=== PATIENT | male | born 1955 | race African-American/Black ===

== ENCOUNTER 2021-12-14 07:11 | Emergency (ER) | payer MEDICAID ==
[~2021-12-14] VITALS: Ht 175.3 cm; Wt 82.0 kg
[2021-12-14 08:30] LABS: BASOPHILS % 0.6 % (0.0-2.0); HEMATOCRIT. 44.5 % (42.0-52.0); HEMOGLOBIN. 15.3 g/dL (14.0-18.0); LYMPHOCYTES % 22.6 % (20.0-50.0); MEAN CORPUSCULAR HEMOGLOBIN 34.2 pg (28.0-32.0); MEAN CORPUSCULAR VOLUME 99.6 fL (80.0-94.0); NEUTROPHILS % 50.8 % (40.0-76.0); PLATELET 300 x1000/uL (130-400); RED BLOOD CELL COUNT 4.47 mill/uL (4.7-6.1); RED CELL DISTRIBUTION WIDTH 13.1 % (11.6-14.6)
[2021-12-14 08:36] LABS: CHLORIDE 105 mEq/L (98-107)
[2021-12-14] MEDS ORDERED: METHYLPREDNISOLONE SOD SUCC 125 MG/2 ML VIAL IV STA (09:20)
[2021-12-14] MEDS ORDERED: IPRATROPIUM BROMIDE (0.02%) 0.5MG/2.5ML NEB HHN STA (09:20)
[2021-12-14] MEDS ORDERED: ALBUTEROL (0.083%) 2.5MG/3ML NEB HHN STA (09:20)
[2021-12-14] MEDS ORDERED: ALBU6.7H9 INH (09:29)
[2021-12-14] MEDS ORDERED: P50 MT (09:29)
[2021-12-14 09:50] VITALS: BP 147/75
== END 2021-12-14 11:05 | disposition home or self-care (01) ==
LOC: ER 07:11
DX: J44.1 Chronic obstructive pulmonary disease with (acute) exacerbation (principal); I10 Essential (primary) hypertension
CPT/HCPCS: 36415; 71045; 80053; 83880; 85025; 93005; 94640; 96374; 99285; J2930; Z7610

== ENCOUNTER 2021-12-27 20:28 | Emergency (ER) | payer MEDICAID ==
[~2021-12-27] VITALS: Ht 175.3 cm; Wt 82.0 kg
[~2021-12-27 20:28] MED LIST: ALBU6.7H9 INH; P50 MT
[2021-12-27] MEDS ORDERED: IPRATROPIUM BROMIDE (0.02%) 0.5MG/2.5ML NEB HHN STA (22:46)
[2021-12-27] MEDS ORDERED: METHYLPREDNISOLONE SOD SUCC 125 MG/2 ML VIAL IV STA (22:46)
[2021-12-27] MEDS ORDERED: MAGNESIUM 2 G PREMIX 50 ML IV ONE (23:00)
[2021-12-27] MEDS: ALBUTEROL (0.083%) 2.5MG/3ML NEB HHN SCH (23:18)
[2021-12-28 00:16] LABS: BASOPHILS % 0.7 % (0.0-2.0); EOSINOPHILS % 11.5 % (0.0-5.0); HEMATOCRIT. 42.9 % (42.0-52.0); HEMOGLOBIN. 14.9 g/dL (14.0-18.0); MEAN CORPUSCULAR HEMOGLOBIN 34.5 pg (28.0-32.0); MEAN CORPUSCULAR VOLUME 99.2 fL (80.0-94.0); MEAN PLATELET VOLUME 8.1 fl (7.4-10.4); MONOCYTES % 12.6 % (2.0-8.0); NEUTROPHILS % 52.2 % (40.0-76.0); PLATELET 305 x1000/uL (130-400); RED BLOOD CELL COUNT 4.32 mill/uL (4.7-6.1); RED CELL DISTRIBUTION WIDTH 13.2 % (11.6-14.6)
[2021-12-28 00:20] LABS: CHLORIDE 110 mEq/L (98-107)
[2021-12-28] MEDS ORDERED: BENZONATATE 200MG CAPSULE PO ONE (00:30)
[2021-12-28] MEDS ORDERED: BENZONATATE 100MG CAPSULE PO SCH (01:00)
[2021-12-28] MEDS ORDERED: SODIUM CHLORIDE 0.9% 1,000 ML IV ONE (04:15)
[2021-12-28] MEDS ORDERED: CEFTRIAXONE 1 G PREMIX 50 ML IV SCH (04:15)
[2021-12-28] MEDS ORDERED: AZITHROMYCIN 500MG/250ML 250 ML IV SCH (04:15)
[2021-12-28 06:00] VITALS: BP 171/92
[2021-12-28] MEDS: ALBUTEROL (0.083%) 2.5MG/3ML NEB HHN SCH ×2 (07:58)
== END 2021-12-28 08:20 | disposition left against medical advice (07) ==
LOC: ER 20:28 → ENRESERV 12-28 10:42 → CANRESERV 12-28 10:42 → CANBEDREQ 12-28 11:12
DX: R06.02 Shortness of breath (principal); J44.9 Chronic obstructive pulmonary disease, unspecified; I10 Essential (primary) hypertension; F14.10 Cocaine abuse, uncomplicated; F17.210 Nicotine dependence, cigarettes, uncomplicated; Z20.822 Contact with and (suspected) exposure to COVID-19; Z89.9 Acquired absence of limb, unspecified
CPT/HCPCS: 36415; 71045; 80053; 83605; 83880; 84484; 85025; 87426; 94640; 96365; 96366; 96375; 99291; J2930; J3475; Z7610

== ENCOUNTER 2022-01-28 07:40 | Emergency (ER) | payer MEDICAID ==
[~2022-01-28] VITALS: Ht 175.3 cm; Wt 81.0 kg
[2022-01-28] MEDS ORDERED: IPRATROPIUM BROMIDE (0.02%) 0.5MG/2.5ML NEB HHN STA ×2 (09:04→13:03)
[2022-01-28] MEDS ORDERED: METHYLPREDNISOLONE SOD SUCC 125 MG/2 ML VIAL IV STA (09:04)
[2022-01-28] MEDS ORDERED: ALBUTEROL (0.083%) 2.5MG/3ML NEB HHN STA ×2 (09:04→13:03)
[2022-01-28 09:23] LABS: HEMATOCRIT. 45.1 % (42.0-52.0); HEMOGLOBIN. 15.6 g/dL (14.0-18.0); MEAN CORPUSCULAR HEMOGLOBIN 34.1 pg (28.0-32.0); MEAN CORPUSCULAR VOLUME 98.7 fL (80.0-94.0); MEAN PLATELET VOLUME 8.1 fl (7.4-10.4); PLATELET 304 x1000/uL (130-400); RED BLOOD CELL COUNT 4.56 mill/uL (4.7-6.1); RED CELL DISTRIBUTION WIDTH 12.6 % (11.6-14.6)
[2022-01-28 09:36] LABS: CHLORIDE 108 mEq/L (98-107)
[2022-01-28 10:09] LABS: PLATELET ESTIMATE NORMAL
[2022-01-28 14:15] VITALS: BP 149/80
[2022-01-28] MEDS ORDERED: ALBU6.7H9 INH (15:08)
[2022-01-28] MEDS ORDERED: P50 MT (15:09)
== END 2022-01-28 15:49 | disposition home or self-care (01) ==
LOC: ER 07:40
DX: J44.1 Chronic obstructive pulmonary disease with (acute) exacerbation (principal); F14.10 Cocaine abuse, uncomplicated; I10 Essential (primary) hypertension
CPT/HCPCS: 36415; 71045; 80053; 83880; 84484; 85025; 93005; 94640; 96374; 99285; J2930; Z7610

== ENCOUNTER 2022-06-13 11:06 | Emergency (ER) | payer MEDICARE, MEDICAID ==
[~2022-06-13] VITALS: Ht 175.3 cm; Wt 84.0 kg
[~2022-06-13 11:06] MED LIST changes: +ALBU6.7H3 INH; -ALBU6.7H9 INH; +AMLO10TA4 MT; +AZIT500T8 MT; +LISI10TA26 PO; +P20 PO
[2022-06-13 11:15] VITALS: BP 157/98
== END 2022-06-13 17:57 | disposition left against medical advice (07) ==
LOC: ER 11:06
DX: Z53.21 Procedure and treatment not carried out due to patient leaving prior to being seen by health care provider (principal)
CPT/HCPCS: 93005

== ENCOUNTER 2022-06-15 09:28 | Emergency (ER) | payer MEDICARE, MEDICAID ==
[~2022-06-15] VITALS: Ht 170.2 cm; Wt 79.0 kg
[2022-06-15] MEDS ORDERED: METHYLPREDNISOLONE SOD SUCC 125 MG/2 ML VIAL IV STA (10:55)
[2022-06-15] MEDS ORDERED: IPRATROPIUM BROMIDE (0.02%) 0.5MG/2.5ML NEB HHN STA (10:55)
[2022-06-15] MEDS ORDERED: MAGNESIUM 2 G PREMIX 50 ML IV ONE (11:00)
[2022-06-15] MEDS: ALBUTEROL (0.083%) 2.5MG/3ML NEB HHN SCH ×3 (11:16→12:39)
[2022-06-15 11:55] LABS: BASOPHILS % 0.8 % (0.0-2.0); EOSINOPHILS % 14.4 % (0.0-5.0); HEMOGLOBIN. 15.7 g/dL (14.0-18.0); LYMPHOCYTES % 24.5 % (20.0-50.0); MEAN CORPUSCULAR HEMOGLOBIN 34.9 pg (28.0-32.0); MEAN CORPUSCULAR VOLUME 100.4 fL (80.0-94.0); MEAN PLATELET VOLUME 8.6 fl (7.4-10.4); NEUTROPHILS % 50.3 % (40.0-76.0); PLATELET 332 x1000/uL (130-400); RED BLOOD CELL COUNT 4.49 mill/uL (4.7-6.1); RED CELL DISTRIBUTION WIDTH 13.1 % (11.6-14.6)
[2022-06-15 12:03] LABS: CHLORIDE 106 mEq/L (98-107)
[2022-06-15 12:12] LABS: ETHANOL BLOOD < 10 mg/dL
[2022-06-15 12:19] LABS: *AMPHETAMINES SCREEN URINE NEGATIVE (NEGATIVE); *BARBITURATES SCREEN URINE NEGATIVE (NEGATIVE); *BENZODIAZEPINES SCREEN URINE NEGATIVE (NEGATIVE); *COCAINE SCREEN URINE PRESUMTIVE POSITIVE (NEGATIVE); CANNABINOID URINE SCREEN NEGATIVE (NEGATIVE); METHADONE URINE SCREEN NEGATIVE (NEGATIVE); OPIATES URINE SCREEN PRESUMTIVE POSITIVE (NEGATIVE); PHENCYCLIDINE URINE SCREEN NEGATIVE (NEGATIVE)
[2022-06-15] MEDS ORDERED: ALBUTEROL (0.5%) 2.5MG/0.5ML NEB HHN NR (12:40)
[2022-06-15 13:14] LABS: BG BASE EXCESS 4.2 mmol/L (-2.0-2.0); BG CARBOXYHEMOGLOBIN 1.3 % (0.5-1.5); BG FRACTION INSPIRED OXYGEN 60; BG HCO3 ACT 29.6 mmol/L (22.0-26.0); BG METHEMOGLOBIN 0.3 % (0.0-1.5); BG OXYHEMOGLOBIN 95.4 % (94.0-97.0); BG PCO2 46.9 mmHg (35.0-45.0); BG PH 7.418 (7.350-7.450); BG PO2 90.6 mmHg (75.0-100.0); BG SAMPLE SITE RIGHT RADIAL; BG VENT MODE MASK - HHN
[2022-06-15] MEDS ORDERED: P20 MT (15:10)
[2022-06-15 15:26] VITALS: BP 149/91
== END 2022-06-15 15:30 | disposition home or self-care (01) ==
LOC: ER 09:59
DX: J44.1 Chronic obstructive pulmonary disease with (acute) exacerbation (principal); F14.10 Cocaine abuse, uncomplicated; T40.5X1A Poisoning by cocaine, accidental (unintentional), initial encounter; G89.29 Other chronic pain; I10 Essential (primary) hypertension; Y92.9 Unspecified place or not applicable; Z89.9 Acquired absence of limb, unspecified; Z87.891 Personal history of nicotine dependence; Z20.822 Contact with and (suspected) exposure to COVID-19
CPT/HCPCS: 36415; 36600; 71045; 80053; 80305; 80320; 82375; 82805; 83880; 84484; 85025; 87426; 87804; 93005; 94640; 96365; 96375; 99291; C9803; J2930; J3475; G0480

== ENCOUNTER 2022-07-07 14:39 | Inpatient (IN) | payer MEDICARE, MEDICAID ==
[~2022-07-07] VITALS: Ht 175.3 cm; Wt 85.4 kg
[~2022-07-07 14:39] MED LIST changes: +P20 MT
[2022-07-07] MEDS ORDERED: IPRATROPIUM/ALBUTEROL 0.5-3(2.5)MG/3ML NEB HHN ONE (15:30)
[2022-07-07] MEDS ORDERED: DEXAMETHASONE 4MG TABLET PO ONE (15:30)
[2022-07-07] MEDS ORDERED: ALBUTEROL (0.083%) 2.5MG/3ML NEB HHN ONE ×2 (16:00→17:00)
[2022-07-07 17:32] LABS: HEMATOCRIT. 45.9 % (42.0-52.0); HEMOGLOBIN. 15.9 g/dL (14.0-18.0); MEAN CORPUSCULAR HEMOGLOBIN 34.9 pg (28.0-32.0); MEAN CORPUSCULAR VOLUME 100.6 fL (80.0-94.0); MEAN PLATELET VOLUME 8.2 fl (7.4-10.4); PLATELET 321 x1000/uL (130-400); RED BLOOD CELL COUNT 4.56 mill/uL (4.7-6.1); RED CELL DISTRIBUTION WIDTH 12.8 % (11.6-14.6)
[2022-07-07 17:42] LABS: CHLORIDE 101 mEq/L (98-107)
[2022-07-07 17:58] LABS: PLATELET ESTIMATE NORMAL
[2022-07-08] MEDS ORDERED: ALBUTEROL (0.083%) 2.5MG/3ML NEB HHN PRN ×2 (04:15→09:15)
[2022-07-08] MEDS ORDERED: ONDANSETRON HCL 4MG/2ML INJ IV PRN (08:45)
[2022-07-08] MEDS ORDERED: ACETAMINOPHEN 325MG TABLET PO PRN ×2 (08:45)
[2022-07-08] MEDS ORDERED: CLONIDINE 0.1MG TABLET PO PRN (08:45)
[2022-07-08] MEDS ORDERED: MAGNESIUM/ALUMINUM HYDROXIDE/SIMETHICONE 30ML UDC PO PRN (08:45)
[2022-07-08] MEDS ORDERED: DOCUSATE SODIUM 100MG CAPSULE PO PRN (08:45)
[2022-07-08] MEDS ORDERED: NITROGLYCERIN 0.4MG TABLET SL SL PRN (09:00)
[2022-07-08] MEDS ORDERED: IPRATROPIUM/ALBUTEROL 0.5-3(2.5)MG/3ML NEB HHN PRN (09:00)
[2022-07-08] MEDS ORDERED: KETOROLAC 15MG/ML VIAL IV PRN (09:00)
[2022-07-08] MEDS ORDERED: IPRATROPIUM BROMIDE (0.02%) 0.5MG/2.5ML NEB HHN PRN (09:15)
[2022-07-08] MEDS: LOSARTAN POTASSIUM 100 MG TABLET PO SCH (09:36)
[2022-07-08] MEDS: ASPIRIN 325MG EC TABLET PO SCH (09:36)
[2022-07-08] MEDS: ENOXAPARIN 40MG/0.4ML SYR SUBCUT SCH (09:39)
[2022-07-08] MEDS ORDERED: IPRATROPIUM/ALBUTEROL 0.5-3(2.5)MG/3ML NEB HHN SCH (10:00)
[2022-07-08] MEDS ORDERED: AZITHROMYCIN 500MG/250ML 250 ML IV SCH (10:00)
[2022-07-08 11:03] VITALS: BP 157/88
[2022-07-08 11:13] VITALS: BP 157/88
[2022-07-08] MEDS: ALBUTEROL (0.083%) 2.5MG/3ML NEB HHN SCH ×3 (11:40→21:29)
[2022-07-08] MEDS: IPRATROPIUM BROMIDE (0.02%) 0.5MG/2.5ML NEB HHN SCH ×3 (11:40→21:29)
[2022-07-08 12:00] VITALS: BP 144/78
[2022-07-08] MEDS: AZITHROMYCIN 500MG in DEXTROSE 5% WATER 250ML IV SCH (14:00)
[2022-07-08] MEDS: METHYLPREDNISOLONE SOD SUCC 125 MG/2 ML VIAL IV SCH ×2 (14:00→21:11)
[2022-07-08 16:00] VITALS: BP 141/86
[2022-07-08 16:33] LABS: VITAMIN B12 SERUM 461 pg/mL (211-911)
[2022-07-08 17:45] LABS: MONOTEST NEGATIVE (NEGATIVE)
[2022-07-08] MEDS ORDERED: POTA-202 PO (18:03)
[2022-07-08] MEDS ORDERED: FLOV44 INH (18:03)
[2022-07-08] MEDS ORDERED: IPRA3AMP31 NEB (18:05)
[2022-07-08 20:00] VITALS: BP 152/89
[2022-07-08] MEDS: FAMOTIDINE 20MG TABLET PO SCH (20:30)
[2022-07-08] MEDS ORDERED: ZOLPIDEM TARTRATE 5MG TABLET PO PRN (21:00)
[2022-07-08] MEDS: GUAIFENESIN 200MG/10ML SUGAR FREE UDC PO PRN (23:29)
[2022-07-08 23:39] LABS: CLARITY URINE CLEAR (CLEAR); COLOR URINE YELLOW (YELLOW); KETONES URINE NEGATIVE (NEGATIVE); LEUKOCYTE ESTERASE URINE NEGATIVE (NEGATIVE); NITRITE URINE NEGATIVE (NEGATIVE); OCCULT BLOOD URINE NEGATIVE (NEGATIVE); PH URINE 6.5 (4.5-8.0); PROTEIN URINE NEGATIVE (NEGATIVE); SPECIFIC GRAVITY URINE 1.015 (1.005-1.030)
[2022-07-08 23:49] LABS: *AMPHETAMINES SCREEN URINE NEGATIVE (NEGATIVE); *BARBITURATES SCREEN URINE NEGATIVE (NEGATIVE); *BENZODIAZEPINES SCREEN URINE NEGATIVE (NEGATIVE); *COCAINE SCREEN URINE NEGATIVE (NEGATIVE); CANNABINOID URINE SCREEN NEGATIVE (NEGATIVE); METHADONE URINE SCREEN NEGATIVE (NEGATIVE); OPIATES URINE SCREEN NEGATIVE (NEGATIVE); PHENCYCLIDINE URINE SCREEN NEGATIVE (NEGATIVE)
[2022-07-09] VITALS: BP 135/65
[2022-07-09] MEDS: ALBUTEROL (0.083%) 2.5MG/3ML NEB HHN SCH ×6 (01:01→20:58)
[2022-07-09] MEDS: IPRATROPIUM BROMIDE (0.02%) 0.5MG/2.5ML NEB HHN SCH ×6 (01:01→20:58)
[2022-07-09 04:00] VITALS: BP 145/91
[2022-07-09] MEDS: GUAIFENESIN 200MG/10ML SUGAR FREE UDC PO PRN ×4 (05:18→21:22)
[2022-07-09] MEDS: METHYLPREDNISOLONE SOD SUCC 125 MG/2 ML VIAL IV SCH ×2 (05:18→13:06)
[2022-07-09 06:20] LABS: HEMATOCRIT. 44.3 % (42.0-52.0); HEMOGLOBIN. 15.5 g/dL (14.0-18.0); MEAN CORPUSCULAR HEMOGLOBIN 34.8 pg (28.0-32.0); MEAN CORPUSCULAR VOLUME 99.5 fL (80.0-94.0); MEAN PLATELET VOLUME 8.5 fl (7.4-10.4); PLATELET 324 x1000/uL (130-400); RED BLOOD CELL COUNT 4.46 mill/uL (4.7-6.1); RED CELL DISTRIBUTION WIDTH 12.7 % (11.6-14.6)
[2022-07-09 06:33] LABS: CHLORIDE 104 mEq/L (98-107)
[2022-07-09 06:49] LABS: HDL CHOLESTEROL 97 mg/dL (40-59); LDL CHOLESTEROL 63 mg/dL (5-100); T4 FREE 0.96 ng/dL (0.76-1.46)
[2022-07-09 08:00] VITALS: BP 132/76
[2022-07-09] MEDS: ASPIRIN 325MG EC TABLET PO SCH (08:08)
[2022-07-09] MEDS: LOSARTAN POTASSIUM 100 MG TABLET PO SCH (08:08)
[2022-07-09] MEDS: ENOXAPARIN 40MG/0.4ML SYR SUBCUT SCH (08:08)
[2022-07-09] MEDS: GUAIFENESIN 600MG ER TABLET PO SCH ×2 (11:12→21:15)
[2022-07-09 12:00] VITALS: BP 142/72
[2022-07-09] MEDS: AZITHROMYCIN 500MG in DEXTROSE 5% WATER 250ML IV SCH (13:06)
[2022-07-09 16:00] VITALS: BP 141/81
[2022-07-09 16:13] LABS: PLATELET ESTIMATE NORMAL
[2022-07-09 20:00] VITALS: BP 165/85
[2022-07-09] MEDS: FAMOTIDINE 20MG TABLET PO SCH (21:15)
[2022-07-09] MEDS: METHYLPREDNISOLONE SOD SUCC 40 MG/ML VIAL IV SCH (21:15)
[2022-07-10] VITALS: BP 161/86
[2022-07-10] MEDS: ALBUTEROL (0.083%) 2.5MG/3ML NEB HHN SCH ×6 (00:24→20:23)
[2022-07-10] MEDS: IPRATROPIUM BROMIDE (0.02%) 0.5MG/2.5ML NEB HHN SCH ×6 (00:24→20:22)
[2022-07-10 04:00] VITALS: BP 158/95
[2022-07-10 08:00] VITALS: BP 147/79
[2022-07-10] MEDS: GUAIFENESIN 600MG ER TABLET PO SCH (08:16)
[2022-07-10] MEDS: METHYLPREDNISOLONE SOD SUCC 40 MG/ML VIAL IV SCH (08:16)
[2022-07-10] MEDS: LOSARTAN POTASSIUM 100 MG TABLET PO SCH (08:16)
[2022-07-10] MEDS: ASPIRIN 325MG EC TABLET PO SCH (08:16)
[2022-07-10] MEDS: ENOXAPARIN 40MG/0.4ML SYR SUBCUT SCH (08:16)
[2022-07-10] MEDS: GUAIFENESIN 200MG/10ML SUGAR FREE UDC PO PRN ×2 (08:22→14:29)
[2022-07-10] MEDS: THROAT LOZENGES-BENZOCAINE/MENTH/CETYLPYRD CL LOZENGES MM PRN ×2 (11:03→17:10)
[2022-07-10] MEDS: AZITHROMYCIN 500 MG TABLET PO SCH (11:03)
[2022-07-10 12:00] VITALS: BP 154/95
[2022-07-10] MEDS: ACETYLCYSTEINE 100MG/ML 10% VIAL 4ML INH SCH (15:49)
[2022-07-10 16:00] VITALS: BP 142/77
[2022-07-10 20:00] VITALS: BP 150/95
[2022-07-10] MEDS: FAMOTIDINE 20MG TABLET PO SCH (21:17)
[2022-07-11] VITALS: BP 121/66
[2022-07-11] MEDS: ACETYLCYSTEINE 100MG/ML 10% VIAL 4ML INH SCH (00:17)
[2022-07-11] MEDS: IPRATROPIUM BROMIDE (0.02%) 0.5MG/2.5ML NEB HHN SCH ×3 (00:18→09:03)
[2022-07-11] MEDS: ALBUTEROL (0.083%) 2.5MG/3ML NEB HHN SCH ×3 (00:18→09:03)
[2022-07-11 04:00] VITALS: BP 151/83
[2022-07-11 07:40] VITALS: BP 156/88
[2022-07-11 08:31] VITALS: BP 149/88
[2022-07-11] MEDS: ENOXAPARIN 40MG/0.4ML SYR SUBCUT SCH (08:31)
[2022-07-11] MEDS: AZITHROMYCIN 500 MG TABLET PO SCH (08:31)
[2022-07-11] MEDS: LOSARTAN POTASSIUM 100 MG TABLET PO SCH (08:31)
[2022-07-11] MEDS: ASPIRIN 325MG EC TABLET PO SCH (08:31)
[2022-07-11] MEDS ORDERED: PREDNISONE 20MG TABLET PO SCH (09:00)
[2022-07-11] MEDS ORDERED: P20 MT (09:31)
[2022-07-11] MEDS ORDERED: AZIT500T8 MT (09:31)
[2022-07-11] MEDS ORDERED: TIOT18CA3 INH (09:31)
[2022-07-11] MEDS ORDERED: ALBU6.7H3 INH (10:13)
[2022-07-11 10:22] VITALS: BP 149/88
== END 2022-07-11 15:36 | disposition home or self-care (01) | DRG 193 ==
LOC: ER 14:39 → MICUSO 17:51 → EDBEDREQ 17:57 → EDBEDREQTM 17:57 → 3WST 07-08 11:01
PROVIDERS: ADMIT Internal Medicine; ATTEND Internal Medicine
DX: J18.9 Pneumonia, unspecified organism (principal); J96.01 Acute respiratory failure with hypoxia; J44.1 Chronic obstructive pulmonary disease with (acute) exacerbation; J44.0 Chronic obstructive pulmonary disease with (acute) lower respiratory infection; Z20.822 Contact with and (suspected) exposure to COVID-19; I10 Essential (primary) hypertension; Z87.891 Personal history of nicotine dependence
CPT/HCPCS: 36415; 71045; 80053; 80061; 80305; 81003; 82607; 82746; 83036; 83880; 84439; 84443; 84484; 85025; 85379; 86308; 87426; 87804; 93005; 94640; 99285; C9803; J0456; J1650; J2920; J2930; J7060; J7512; J7608; J8540

== ENCOUNTER 2024-12-27 18:08 | Inpatient (IN) | payer MEDICARE, MEDICAID ==
[~2024-12-27] VITALS: Ht 175.3 cm; Wt 84.8 kg
[~2024-12-27 18:08] MED LIST changes: +ALBU6.7H15 INH; +AMLO-905 MT; -AMLO10TA4 MT; +FLOV44 INH; +FLUT1DIS3 INH; -P20 PO; -P50 MT; +TIOT18CA3 INH
[2024-12-27 18:33] LABS: HEMATOCRIT. 43.6 % (42.0-52.0); HEMOGLOBIN. 14.8 g/dL (14.0-18.0); MEAN PLATELET VOLUME 8.3 fl (7.4-10.4); PLATELET 367 x1000/uL (130-400); RED BLOOD CELL COUNT 4.42 mill/uL (4.7-6.1); RED CELL DISTRIBUTION WIDTH 12.4 % (11.6-14.6)
[2024-12-27] MEDS: METHYLPREDNISOLONE SOD SUCC 125MG/2ML (ACT-O-VIAL) IV SCH (18:38)
[2024-12-27] MEDS: METHYLPREDNISOLONE 40MG/ML INJ IV ONE (18:38)
[2024-12-27 18:40] LABS: CREATININE 0.8 mg/dL (0.6-1.3)
[2024-12-27 18:41] LABS: ETHANOL BLOOD < 10 mg/dL (<10); UREA NITROGEN BLOOD 17 mg/dL (9-23)
[2024-12-27 18:43] LABS: TROPONIN I HIGH SENSITIVITY 8 ng/L (3.0-53)
[2024-12-27 18:55] LABS: INR 1.0
[2024-12-27 18:58] LABS: BAND% 1.0 % (1.0-6.0); EOSINOPHILS % MANUAL 6.0 % (0.0-5.0); LYMPHOCYTES % MANUAL 9.0 % (20.0-50.0); MONOCYTES % MANUAL 4.0 % (2.0-8.0); NEUTROPHILS % MANUAL 80.0 % (45.0-75.0); PLATELET ESTIMATE NORMAL
[2024-12-27] MEDS: ALBUTEROL (0.083%) 2.5MG/3ML NEB HHN ONE (20:46)
[2024-12-27 20:47] VITALS: PULSE 92; RESP 18; O2SAT 92
[2024-12-27] MEDS: ALBUTEROL (0.083%) 2.5MG/3ML NEB ONE (20:54)
[2024-12-27] MEDS ORDERED: ACETAMINOPHEN 325MG TABLET PO PRN ×2 (22:15)
[2024-12-27] MEDS ORDERED: CLONIDINE 0.1MG TABLET PO PRN (22:15)
[2024-12-27] MEDS ORDERED: GUAIFENESIN 200MG/10ML SUGAR FREE UDC PO PRN (22:15)
[2024-12-27] MEDS ORDERED: MAGNESIUM/ALUMINUM HYDROXIDE/SIMETHICONE 30ML UDC PO PRN (22:15)
[2024-12-27] MEDS ORDERED: CEFTRIAXONE 1,000 MG in DEXT 5% WATER 100 ML IV SCH (22:15)
[2024-12-28] VITALS (11 sets, daily range): BP systolic 108–161; BP diastolic 80–92; PULSE 77–94; RESP 18–24; TEMP 36.4–37; O2SAT 9–98
[2024-12-28 00:54] LABS: CLARITY URINE CLEAR (CLEAR); COLOR URINE YELLOW (YELLOW); GLUCOSE URINE NEGATIVE (NEGATIVE); KETONES URINE NEGATIVE (NEGATIVE); LEUKOCYTE ESTERASE URINE NEGATIVE (NEGATIVE); NITRITE URINE NEGATIVE (NEGATIVE); OCCULT BLOOD URINE NEGATIVE (NEGATIVE); PH URINE 6.5 (4.5-8.0); PROTEIN URINE TRACE (NEGATIVE); SPECIFIC GRAVITY URINE 1.023 (1.005-1.030); UROBILINOGEN URINE 1.0 E.U./dL (0.2-1.0)
[2024-12-28] MEDS ORDERED: HYDR-4350 PO (01:03)
[2024-12-28 01:04] LABS: *AMPHETAMINES SCREEN URINE NEGATIVE (NEGATIVE); *BARBITURATES SCREEN URINE NEGATIVE (NEGATIVE); *BENZODIAZEPINES SCREEN URINE NEGATIVE (NEGATIVE); *COCAINE SCREEN URINE PRESUMPTIVE POSITIVE (NEGATIVE); CANNABINOID URINE SCREEN NEGATIVE (NEGATIVE); ECSTASY MDMA SCREEN URINE NEGATIVE (NEGATIVE); METHADONE URINE SCREEN NEGATIVE (NEGATIVE); OPIATES URINE SCREEN PRESUMPTIVE POSITIVE (NEGATIVE); PHENCYCLIDINE URINE SCREEN NEGATIVE (NEGATIVE)
[2024-12-28 01:17] LABS: BACTERIA URINE TRACE; RBC URINE 0-2 /hpf (0-2); SQUAMOUS EPITHELIAL CELL URINE RARE /lpf (RARE/1+); WBC URINE NONE SEEN /hpf (0-2)
[2024-12-28] MEDS: METHYLPREDNISOLONE SOD SUCC 40MG/ML (ACT-O-VIAL) IV SCH ×2 (01:30→08:10)
[2024-12-28] MEDS: CEFTRIAXONE 1GM/50ML 50ML IV SCH ×2 (01:30→21:37)
[2024-12-28 09:01] LABS: BG BASE EXCESS 3.2 mmol/L (-2.0-3.0); BG CARBOXYHEMOGLOBIN 1.2 % (0.5-1.5); BG DEOXYHEMOGLOBIN 3.9 % (0.0-5.0); BG FLOW(L/min) 2.00 L/min; BG FRACTION INSPIRED OXYGEN 28; BG HCO3 ACT 28.7 mmol/L (21.0-28.0); BG METHEMOGLOBIN 0.1 % (0.5-1.5); BG OXYGEN SATURATION 96.0 % (94.0-98.0); BG OXYHEMOGLOBIN 94.8 % (94.0-98.0); BG PCO2 46.5 mmHg (35.0-48.0); BG PH 7.408 (7.350-7.450); BG PO2 80.1 mmHg (83.0-108.0); BG SAMPLE SITE RIGHT BRACHIAL; BG TOTAL HEMOGLOBIN 15.5 g/dL (13.5-17.5); BG VENT MODE NASAL CANNULA
[2024-12-28] MEDS: ENOXAPARIN 40MG/0.4ML SYR SUBCUT SCH (09:05)
[2024-12-28] MEDS: IPRATROPIUM/ALBUTEROL 0.5-3(2.5)MG/3ML NEB HHN SCH (12:55)
[2024-12-28] MEDS ORDERED: TAMS-54 PO (15:44)
[2024-12-28] MEDS: TAMSULOSIN HCL 0.4MG SR CAPSULE PO SCH (17:32)
[2024-12-28] MEDS: AZITHROMYCIN 500MG/250ML 250 ML IV SCH (18:11)
[2024-12-28] MEDS: LISINOPRIL 10MG TABLET PO SCH (21:42)
[2024-12-28] MEDS ORDERED: AZITHROMYCIN 500MG/250ML 250 ML IV SCH (23:30)
[2024-12-29] VITALS (10 sets, daily range): BP systolic 113–148; BP diastolic 54–89; PULSE 72–83; RESP 18; TEMP 36.4–36.6; O2SAT 95–98
[2024-12-29 09:04] LABS: HEMATOCRIT. 42.5 % (42.0-52.0); HEMOGLOBIN. 14.0 g/dL (14.0-18.0); MEAN PLATELET VOLUME 8.7 fl (7.4-10.4); PLATELET 330 x1000/uL (130-400); RED BLOOD CELL COUNT 4.30 mill/uL (4.7-6.1); RED CELL DISTRIBUTION WIDTH 12.6 % (11.6-14.6)
[2024-12-29] MEDS: AMLODIPINE 10MG TABLET PO SCH (09:48)
[2024-12-29 11:18] LABS: CREATININE 0.8 mg/dL (0.6-1.3); UREA NITROGEN BLOOD 23 mg/dL (9-23)
[2024-12-29 11:19] LABS: ASPARTATE AMINOTRANSFERASE 19 IU/L (<34)
[2024-12-29 11:20] LABS: BILIRUBIN TOTAL 1.1 mg/dL (0.1-1.0); PROTEIN TOTAL 6.7 g/dL (6.0-8.3)
[2024-12-29 16:53] LABS: LYMPHOCYTES % MANUAL 6.0 % (20.0-50.0); MONOCYTES % MANUAL 11.0 % (2.0-8.0); NEUTROPHILS % MANUAL 83.0 % (45.0-75.0); PLATELET ESTIMATE NORMAL
[2024-12-30] VITALS (9 sets, daily range): BP systolic 126–143; BP diastolic 75–78; PULSE 81–106; RESP 18–19; TEMP 36.1–37; O2SAT 95–98
[2024-12-30 06:23] LABS: CREATININE 0.8 mg/dL (0.6-1.3); HEMATOCRIT. 41.8 % (42.0-52.0); HEMOGLOBIN. 13.8 g/dL (14.0-18.0); MEAN PLATELET VOLUME 8.6 fl (7.4-10.4); PLATELET 330 x1000/uL (130-400); RED BLOOD CELL COUNT 4.24 mill/uL (4.7-6.1); RED CELL DISTRIBUTION WIDTH 12.7 % (11.6-14.6)
[2024-12-30 06:24] LABS: UREA NITROGEN BLOOD 20 mg/dL (9-23)
[2024-12-30] MEDS ORDERED: ALBU18HF2 IH (08:57)
[2024-12-30] MEDS ORDERED: P20 MT (08:57)
[2024-12-30] MEDS ORDERED: FAMO20TA8 MT (08:57)
[2024-12-30] MEDS ORDERED: IPRA3AMP9 HHN (08:57)
[2024-12-30 12:31] LABS: BAND% 1.0 % (1.0-6.0); LYMPHOCYTES % MANUAL 7.0 % (20.0-50.0); MONOCYTES % MANUAL 1.0 % (2.0-8.0); NEUTROPHILS % MANUAL 91.0 % (45.0-75.0); PLATELET ESTIMATE NORMAL
== END 2024-12-30 12:17 | disposition home or self-care (01) | DRG 205 ==
LOC: ER 18:08 → EDBEDREQ 22:32 → EDBEDREQTM 22:32 → ENRESERV 22:36 → 5WST 23:48
PROVIDERS: ADMIT Family Medicine Adult Medicine; ATTEND Family Medicine Adult Medicine
DX: J68.0 Bronchitis and pneumonitis due to chemicals, gases, fumes and vapors (principal); J96.21 Acute and chronic respiratory failure with hypoxia; I10 Essential (primary) hypertension; F14.90 Cocaine use, unspecified, uncomplicated; F19.10 Other psychoactive substance abuse, uncomplicated; D72.829 Elevated white blood cell count, unspecified; Z99.81 Dependence on supplemental oxygen; Z87.891 Personal history of nicotine dependence; Z79.899 Other long term (current) drug therapy
CPT/HCPCS: 36415; 36600; 71045; 80048; 80053; 80305; 80320; 81003; 82375; 82805; 83880; 84484; 85025; 93005; 93970; 94070; 94640; 99291; J0456; J0696; J1650; J2919; G0480